=== PATIENT | male | born 1955 | race Two or more races ===

== ENCOUNTER 2019-12-25 17:27 | Emergency (ER) | payer SELFPAY ==
[2019-12-25 18:04] LABS: ABSOLUTE EOSINOPHILS # (AUTO) 0.4 10^3/uL (0.0-0.6); ABSOLUTE LYMPHOCYTES (AUTO) 3.2 10^3/uL (0.5-4.7); ABSOLUTE MONOCYTES (AUTO) 0.4 10^3/uL (0.1-1.4); ABSOLUTE NEUT (AUTO) 5.7 10^3/uL (1.7-8.2); BASOPHILS % (AUTO) 0.3 % (0-2); EOSINOPHILS % (AUTO) 4.4 % (0-6); HEMATOCRIT 47.3 % (37.9-51.0); HEMOGLOBIN 16.5 g/dL (13.5-17.0); LYMPHOCYTES % (AUTO) 32.4 % (13-45); MEAN CORPUSCULAR HEMOGLOBIN 28.6 pg (27.0-33.4); MEAN CORPUSCULAR VOLUME 82 fl (80-97); MONOCYTES % (AUTO) 4.3 % (3-13); PLATELET COUNT 202 10^3/uL (150-450); RED BLOOD COUNT 5.77 10^6/uL (4.35-5.55); RED CELL DISTRIBUTION WIDTH 15.3 % (11.5-14.0); SEGMENTED NEUTROPHILS % (AUTO) 58.6 % (42-78); TOTAL CELLS COUNTED % (AUTO) 100 %; WHITE BLOOD COUNT 9.7 10^3/uL (4.0-10.5)
[2019-12-25] MEDS ORDERED: DEXAMETHASONE SOD PHOS INJ 10 MG/1 ML VIAL IV ONE (18:09)
[2019-12-25] MEDS ORDERED: DILTIAZEM HCL INJ 25 MG/5 ML VIAL IV ONE (18:10)
[2019-12-25] MEDS ORDERED: FAMOTIDINE INJ/PF 20 MG/2 ML SDV IV ONE (18:10)
[2019-12-25] MEDS ORDERED: DIPHENHYDRAMINE HCL 50 MG/ML VIAL IV ONE (18:11)
--- NOTE | 2019-12-25 18:17 | ER Document Report ---
ED General - General Chief Complaint: High Blood Pressure Stated Complaint: BLOOD PRESSURE ISSUES Time Seen by Provider: 12/25/19 18:09 Mode of Arrival: Ambulatory Information source: Patient Notes: 64-year-old [place] male who is speaking French to his family on his phone cell type just prior to me entering the room. Patient reports within the hour he had eaten at [employer]. a fish sandwich and he began to have red tingling ears and red swelling around his eyes and face and around his lips. He feels like his eyes are gritty with sand in them. He reports when he has nader rgic reactions like to iodine he usually has all his reaction above his chest. He denies any hives shortness of breath but does have a history of hypertension and EMS reported a 240/140 blood pressure. He does not take any blood pressure medicines. He was 179/89 upon arrival. He reports he is eaten [employer] multiple times in the past without any problems. TRAVEL OUTSIDE OF THE [place] IN LAST 30 DAYS: No - HPI Onset: Just prior to arrival - Related Data Allergies/Adverse Reactions: iodine Allergy (Verified 12/25/19 17:49) Past Medical History - General Information source: Patient, Emergency Med Personnel - Social History Smoking Status: Never Smoker Cigarette use (# per day): No Chew tobacco use (# tins/day): No Smoking Education Provided: No Frequency of alcohol use: Occasional Drug Abuse: None Lives with: Family Family History: Reviewed & Not Pertinent, Hypertension Patient has suicidal ideation: No Patient has homicidal ideation: No - Past Medical History Cardiac Medical History: Reports: Hx Hypertension Past Surgical History: Reports: Hx Cardiac Surgery - stent Review of Systems - Review of Systems Constitutional: No symptoms reported, See HPI EENT: No symptoms reported, See HPI, Ear pain, Nose congestion, Other - Erythema of diffuse face and bilateral ears and periorbital edema and erythema. Patient denies any choking sensation but feels like there is something full in the back of his throat Cardiovascular: No symptoms reported Respiratory: No symptoms reported Gastrointestinal: No symptoms reported Genitourinary: No symptoms reported Male Genitourinary: No symptoms reported Musculoskeletal: No symptoms reported Skin: No symptoms reported Hematologic/Lymphatic: No symptoms reported Neurological/Psychological: No symptoms reported Physical Exam - Vital signs Vitals: Resp Pulse Ox 15 100 12/25/19 17:34 12/25/19 17:34 Interpretation: Hypertensive - General General appearance: Alert In distress: None - HEENT Head: Normocephalic Eyes: Normal Conjunctiva: Normal Cornea: Normal Extraocular movements intact: Yes Eyelashes: Normal Pupils: PERRL Ears: Normal External canal: Normal Sinus: Normal Nasal: Other - Erythema of nares but no sinus congestion Mouth/Lips: Normal Mucous membranes: Dry Pharynx: Erythema, Uvular edema Neck: Normal - Respiratory Respiratory status: No respiratory distress Chest status: Nontender Breath sounds: Normal Chest palpation: Normal - Cardiovascular Heart sounds: Normal auscultation Murmur: No Friction rub: No Sudeep's crunch: No - Abdominal Inspection: Normal Distension: No distension Bowel sounds: Normal Tenderness: Nontender Organomegaly: No organomegaly - Back Back: Normal - Extremities General upper extremity: Normal inspection General lower extremity: Normal inspection - Neurological Neuro grossly intact: Yes Cognition: Normal Orientation: AAOx4 Myla Coma Scale Eye Opening: Spontaneous [place] Coma Scale Verbal: Oriented [place] Coma Scale Motor: Obeys Commands Myla Coma Scale Total: 15 Speech: Normal Cranial nerves: Normal Cerebellar coordination: Normal Motor strength normal: LUE, RUE, LLE, RLE - Psychological Associated symptoms: Normal affect - Skin Skin Temperature: Warm Skin Color: Erythema - Facial erythema but no hives from neck to legs and no erythema to skin of neck to legs Course - Vital Signs Vital signs: Temp Pulse Resp BP Pulse Ox 97.9 F 9 L 171/78 H 100 12/25/19 17:38 12/25/19 19:01 12/25/19 19:01 12/25/19 18:01 - Laboratory Result Diagrams: 12/25/19 17:34 12/25/19 17:34 Laboratory results interpreted by me: 12/25/19 12/25/19 17:34 17:34 RBC 5.77 H RDW 15.3 H Glucose 145 H Critical Care Note - Critical Care Note Total time excluding time spent on procedures (mins): 90 Comments: Patient much improved after medications. I advised Dr. Jc about this patient's case because of his hypertension and he will see the patient in his office.. He advised to call his office tomorrow. 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 He may see you tomorrow in his office. Also avoid any seafood until seen by personal doctor and definitely do not eat any fish sandwich from [employer]. Return to ER if symptoms persist and take medication as directed Prescriptions: Hydroxyzine HCl [Atarax 10 mg Tablet] 10 mg PO TID PRN #30 tablet PRN Reason: Dexamethasone [Decadron 4 Mg Tablet] 4 mg PO BID #8 tablet Amlodipine Besylate [Norvasc 5 mg Tablet] 5 mg PO DAILY #30 tablet Famotidine [Pepcid 20 mg Tablet] 20 mg PO DAILY #12 tablet Forms: Return to Work
[2019-12-25 18:20] LABS: ALBUMIN 4.4 g/dL (3.5-5.0); ALKALINE PHOSPHATASE 97 U/L (38-126); ANION GAP 12 (5-19); ASPARTATE AMINO TRANSFERASE 23 U/L (17-59); BILIRUBIN,DIRECT 0.2 mg/dL (0.0-0.4); BILIRUBIN,TOTAL 0.4 mg/dL (0.2-1.3); BLOOD UREA NITROGEN 13 mg/dL (7-20); CALCIUM 9.6 mg/dL (8.4-10.2); CARBON DIOXIDE 29 mmol/L (22-30); CHLORIDE 98 mmol/L (98-107); CREATINE KINASE 119 U/L (55-170); GLUCOSE 145 mg/dL (75-110); POTASSIUM 3.6 mmol/L (3.6-5.0); TOTAL PROTEIN 7.6 g/dL (6.3-8.2)
[2019-12-25 18:30] LABS: CREATINE KINASE MB 1.74 ng/mL (<4.55)
[2019-12-25 18:31] LABS: TROPONIN I < 0.012 ng/mL
[2019-12-25 19:18] VITALS: BP 171/78
--- NOTE | 2019-12-26 00:26 | EKG REPORT ---
SEVERITY:- ABNORMAL ECG - SINUS RHYTHM PROBABLE LEFT ATRIAL ABNORMALITY NONSPECIFIC T ABNORMALITIES, LATERAL LEADS : Confirmed by: Kiran Duron 26-Dec-2019 00:25:37
== END 2019-12-25 21:30 | disposition home or self-care (01) ==
LOC: ER 17:27
DX: T78.3XXA Angioneurotic edema, initial encounter (principal); I10 Essential (primary) hypertension; X58.XXXA Exposure to other specified factors, initial encounter
CPT/HCPCS: 93005; 99291; 99292; 96374; 96375; 36415; 82553; 82550; 85025; 80053; 84484; 93010; J1200; J3490; S0028; J1100